=== PATIENT | male | born 1995 | race Caucasian/White ===

== ENCOUNTER 2017-04-10 20:34 | Emergency (ER) | payer SELFPAY ==
[~2017-04-10] VITALS: Ht 185.4 cm; Wt 86.0 kg
[2017-04-10 23:00] VITALS: BP 116/74
== END 2017-04-11 00:35 | disposition home or self-care (01) ==
LOC: ED 23:30
DX: R07.89 Other chest pain (principal); F41.1 Generalized anxiety disorder; F32.9 Major depressive disorder, single episode, unspecified; F12.10 Cannabis abuse, uncomplicated
CPT/HCPCS: 71010; 93005; 99284

== ENCOUNTER 2019-02-17 08:43 | Emergency (ER) | payer SELFPAY ==
[~2019-02-17] VITALS: Ht 182.9 cm; Wt 93.8 kg
[2019-02-17 08:51] VITALS: BP 118/76
[2019-02-17] MEDS ORDERED: METHOCARBAMOL 750 MG TABLET PO ONE (09:30)
[2019-02-17] MEDS ORDERED: KETOROLAC 30 MG/1 ML IM ONE (09:30)
[2019-02-17] MEDS ORDERED: METHOCARBAMOL 750 MG TABLET ONE (09:45)
[2019-02-17] MEDS ORDERED: KETOROLAC 30 MG/1 ML ONE (09:45)
--- NOTE | 2019-02-17 09:49 | NUR ---
PT HAS LOW BACK PAIN RADIATING TO RIGHT BUTTOCK. MEDICATED FOR PAIN PER ORDERS
--- NOTE | 2019-02-17 11:03 | NUR ---
first contact with pt. Patient/Caregiver given discharge instructions and they have confirmed that they understand the instructions. Patient ambulatory with steady gait. 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
== END 2019-02-17 11:05 | disposition home or self-care (01) ==
LOC: ED 10:51
DX: S39.012A Strain of muscle, fascia and tendon of lower back, initial encounter (principal); M46.1 Sacroiliitis, not elsewhere classified; X58.XXXA Exposure to other specified factors, initial encounter; Y93.89 Activity, other specified; Y92.89 Other specified places as the place of occurrence of the external cause; Y99.8 Other external cause status
CPT/HCPCS: 72110; 96372; 99283; J1885